=== PATIENT | female | born 2000 | race Caucasian/White ===

== ENCOUNTER 2019-12-17 09:04 | Observation (INO) ==
[2019-12-17] MEDS ORDERED: Acetaminophen 325 MG TABLET PO ONE (09:46)
[2019-12-17 09:50] LABS: Bilirubin,Urine Negative (Negative); Blood,Urine Negative (Negative); Clarity,Urine Cloudy (Clear); Color,Urine Yellow (Yellow); Glucose,Urine (UA) Normal (Normal); Ketones,Urine Negative (Negative); Leukocyte Esterase,Urine Negative (Negative); Nitrite,Urine Negative (Negative); Protein,Urine 100 mg/dL (Neg-Trace); Urobilinogen,Urine Normal (Normal)
[2019-12-17 09:51] LABS: Bacteria,Urine Few per hpf (None-Few); Hyaline Casts,Urine None Seen per lpf (None-Few); Squamous Epithelial Cell,Urine Many per lpf (None-Few)
[2019-12-17 09:52] LABS: Basophils # 0.1 K/mcL (0.0-0.2); Basophils % 0.5 %; Eosinophils # 0.1 K/mcL (0.0-0.6); Eosinophils % 1.1 %; Hematocrit 39.3 % (35.3-44.9); Hemoglobin 13.2 g/dL (11.5-15.4); Immature Granulocytes % 0.6 % (0-4); Lymphocytes # 1.8 K/mcL (0.6-4.6); Lymphocytes % 16.7 %; Mean Corpuscular HGB Conc 33.6 g/dL (31.6-35.5); Mean Corpuscular Hemoglobin 28.7 pg (28.0-33.3); Mean Corpuscular Volume 85.4 fL (83.0-100.0); Mean Platelet Volume 10.6 fL (9.4-12.4); Monocytes # 0.5 K/mcL (0.0-1.3); Monocytes % 4.9 %; Neutrophils # 8.3 K/mcL (1.6-8.9); Platelet Count 219 K/mcL (140-400); Red Cell Distribution Width 12.9 % (11.5-14.5); Segmented Neutrophils % 76.2 %; White Blood Count 10.9 K/mcL (4.3-11.1)
[2019-12-17 09:59] LABS: Protein/Creatinine Ratio,Urine 0.46 mg/mg (0.00-0.20)
[2019-12-17 10:09] LABS: Alanine Aminotransferase 11 Units/L (7-52); Aspartate Amino Transferase 13 Units/L (13-39); BUN/Creatinine Ratio 19 (6-26); Blood Urea Nitrogen 14 mg/dL (6-20); Lactate Dehydrogenase 156 Units/L (140-271); Uric Acid 7.2 mg/dL (2.3-7.6); eGFR For African Americans > 60 (> 60); eGFR For Non-African Americans > 60 (> 60)
== END 2019-12-17 11:10 | disposition home or self-care (01) ==
LOC: 1NENULAB
PROVIDERS: ADMIT Obstetrics & Gynecology; ATTEND Obstetrics & Gynecology

== ENCOUNTER 2019-12-25 09:48 | Inpatient (IN) ==
[2019-12-25] MEDS ORDERED: Ondansetron 4 MG/2 ML VIAL IVP PRN (10:10)
[2019-12-25] MEDS ORDERED: Penicillin G Potassium 5,000,000 UNIT in 0.9 % Sodium Chloride Mini Bag 100 ML IVPB ONE (10:10)
[2019-12-25] MEDS ORDERED: Metoclopramide 10 MG/2 ML VIAL IVP PRN (10:10)
[2019-12-25] MEDS ORDERED: *HR* FentaNYL (PF) 100 MCG/2 ML VIAL IVP PRN (10:10)
[2019-12-25] MEDS ORDERED: Famotidine 20 MG/2 ML VIAL IVP PRN (10:10)
[2019-12-25] MEDS ORDERED: miSOPROStoL 25 MCG TABLET PO PRN (10:10)
[2019-12-25] MEDS ORDERED: Naloxone 0.4 MG/ML INJ IVP PRN (10:10)
[2019-12-25] MEDS ORDERED: *HR* Labetalol 20 MG/4 ML SYRINGE IVP PRN (11:07)
[2019-12-25] MEDS ORDERED: Calcium Gluconate 1,000 MG/10 ML VIAL IVP PRN (11:07)
[2019-12-25] MEDS ORDERED: Calcium Gluconate 1,000 MG/10 ML VIAL ONE (11:09)
[2019-12-25] MEDS ORDERED: *HR* Labetalol 20 MG/4 ML SYRINGE IVP ONE ×3 (11:09→13:56)
[2019-12-25 11:13] LABS: Basophils # 0.1 K/mcL (0.0-0.2); Basophils % 0.4 %; Eosinophils # 0.1 K/mcL (0.0-0.6); Eosinophils % 0.9 %; Hematocrit 38.5 % (35.3-44.9); Immature Granulocytes % 0.7 % (0-4); Lymphocytes # 2.3 K/mcL (0.6-4.6); Lymphocytes % 16.4 %; Mean Corpuscular HGB Conc 33.8 g/dL (31.6-35.5); Mean Corpuscular Hemoglobin 29.3 pg (28.0-33.3); Mean Corpuscular Volume 86.9 fL (83.0-100.0); Mean Platelet Volume 10.5 fL (9.4-12.4); Monocytes # 0.6 K/mcL (0.0-1.3); Monocytes % 4.6 %; Neutrophils # 10.6 K/mcL (1.6-8.9); Platelet Count 194 K/mcL (140-400); Red Blood Count 4.43 M/mcL (3.82-4.97); White Blood Count 13.8 K/mcL (4.3-11.1)
[2019-12-25 11:15] LABS: Alanine Aminotransferase 15 Units/L (7-52); Aspartate Amino Transferase 19 Units/L (13-39); BUN/Creatinine Ratio 16 (6-26); Blood Urea Nitrogen 11 mg/dL (6-20); Lactate Dehydrogenase 173 Units/L (140-271); eGFR For African Americans > 60 (> 60); eGFR For Non-African Americans > 60 (> 60)
[2019-12-25] MEDS: Ringers Solution, Lactated 1,000 ML IVC SCH ×2 (11:18→14:22)
[2019-12-25 11:30] LABS: Amphetamine Screen,Urine Negative ng/mL (Cutoff=1000); Barbiturate Screen,Urine Negative ng/mL (Cutoff=200); Benzodiazepines Screen,Urine Negative ng/mL (Cutoff=200); Cannabinoid Screen,Urine Negative ng/mL (Cutoff = 50); Cocaine Screen,Urine Negative ng/mL (Cutoff= 300); Creatinine,Urine 267 mg/dL; Opiate Screen,Urine Negative ng/mL (Cutoff=300); Phencyclidine Screen,Urine Negative ng/mL (Cutoff=25); Protein/Creatinine Ratio,Urine 0.49 mg/mg (0.00-0.20)
[2019-12-25] MEDS ORDERED: EPHEDrine 50 MG/ML VIAL IVP PRN (14:25)
[2019-12-25] MEDS: Penicillin G Potassium 2,500,000 UNIT in 0.9 % Sodium Chloride 100 ML IVPB SCH ×2 (15:37→21:24)
[2019-12-25] MEDS: Epidural Premix (fent/bupiv) 110 ML EP SCH ×2 (15:38→22:47)
[2019-12-25] MEDS: Oxytocin 20 units/ LR 1000 mL 20 UNIT/1,000 ML BAG IVC SCH (16:53)
[2019-12-25] MEDS: Magnesium Sulf 20 gm/SW 500mL 20 GM/500 ML IV.SOLN IVC SCH (21:22)
[2019-12-25] MEDS: Acetaminophen 325 MG TABLET PO PRN (23:28)
[2019-12-26] MEDS: Penicillin G Potassium 2,500,000 UNIT in 0.9 % Sodium Chloride 100 ML IVPB SCH ×3 (01:36→09:29)
[2019-12-26] MEDS: Oxytocin 20 units/ LR 1000 mL 20 UNIT/1,000 ML BAG IVC SCH ×2 (05:43→12:55)
[2019-12-26] MEDS: Epidural Premix (fent/bupiv) 110 ML EP SCH (06:19)
[2019-12-26] MEDS: Magnesium Sulf 20 gm/SW 500mL 20 GM/500 ML IV.SOLN IVC SCH (08:08)
[2019-12-26] MEDS: Ringers Solution, Lactated 1,000 ML IVC SCH (09:40)
[2019-12-26] MEDS: Acetaminophen 325 MG TABLET PO PRN (13:08)
[2019-12-26] MEDS ORDERED: Sennosides 8.6 MG TABLET PO PRN (14:51)
[2019-12-26] MEDS ORDERED: Rho Immune Globulin 1,500 UNIT SYRINGE IM PRN (14:51)
[2019-12-26] MEDS ORDERED: Magnesium Sulf 20 gm/SW 500mL 20 GM/500 ML IV.SOLN IVC SCH (14:51)
[2019-12-26] MEDS ORDERED: Benzocaine/Menthol 56 GM AEROSOL SPRAY TP PRN (14:51)
[2019-12-26] MEDS ORDERED: Lanolin 7 G OINT...G. TP PRN (14:51)
[2019-12-26] MEDS ORDERED: Oxytocin 20 units/ LR 1000 mL 20 UNIT/1,000 ML BAG IVC ONE (14:51)
[2019-12-26] MEDS ORDERED: Measles/Mumps/Rubella Vacc 0.5 ML VIAL SQ PRN (14:51)
[2019-12-26] MEDS ORDERED: Oxytocin 20 units/ LR 1000 mL 20 UNIT/1,000 ML BAG IVC SCH (14:51)
[2019-12-26 16:53] LABS: Red Cell Distribution Width 13.2 % (11.5-14.5)
[2019-12-26 16:55] LABS: Hemoglobin 9.9 g/dL (11.5-15.4); Mean Corpuscular Hemoglobin 29.1 pg (28.0-33.3); Mean Corpuscular Volume 88.2 fL (83.0-100.0); Mean Platelet Volume 10.5 fL (9.4-12.4); Platelet Count 193 K/mcL (140-400); White Blood Count 27.4 K/mcL (4.3-11.1)
[2019-12-26 17:20] LABS: Lymphocytes # 2.2 K/mcL (0.6-4.6); Monocytes # 1.6 K/mcL (0.0-1.3); Neutrophils # 23.6 K/mcL (1.6-8.9); Platelet Estimate Normal (Normal)
[2019-12-26] MEDS ORDERED: Ondansetron 4 MG/2 ML VIAL IVP ONE (18:19)
[2019-12-26] MEDS: Ibuprofen 600 MG TABLET PO PRN (20:10)
[2019-12-26] MEDS ORDERED: Ringers Solution, Lactated 1,000 ML IVC ONE (23:11)
[2019-12-27] MEDS: Ibuprofen 600 MG TABLET PO PRN (03:18)
[2019-12-27] MEDS: Acetaminophen 325 MG TABLET PO PRN ×3 (04:25→20:03)
[2019-12-27] MEDS: Prenatal Vit/FA 1 EACH TABLET PO SCH (08:21)
[2019-12-28] MEDS: Ibuprofen 600 MG TABLET PO PRN (08:59)
[2019-12-28] MEDS: Prenatal Vit/FA 1 EACH TABLET PO SCH (08:59)
[2019-12-28] MEDS: Acetaminophen 325 MG TABLET PO PRN (08:59)
[2019-12-28 09:09] VITALS: BP 139/80
== END 2019-12-28 11:02 | disposition home or self-care (01) | DRG 560 ==
LOC: 1NENULAB 09:48 → 1NENUOBS 12-26 14:29
PROVIDERS: ADMIT Obstetrics & Gynecology; ATTEND Obstetrics & Gynecology